=== PATIENT | male | born 1975 | race Two or more races ===

== ENCOUNTER → 2018-12-09 | Outpatient (CLI) | payer OTHER | END | disposition home or self-care (01) | LOC: SONOGRAMA 12:39 → RAD 12:39 | DX: Z13.0 Encounter for screening for diseases of the blood and blood-forming organs and certain disorders involving the immune mechanism (principal); R51 Headache; R49.8 Other voice and resonance disorders; R09.81 Nasal congestion ==

== ENCOUNTER 2019-01-15 11:04 | Outpatient (CLI) | payer OTHER | END 2019-01-15 11:08 | disposition home or self-care (01) | LOC: SONOGRAMA 11:04 | DX: K42.0 Umbilical hernia with obstruction, without gangrene (principal) ==

== ENCOUNTER 2019-03-10 11:17 | Outpatient (CLI) | payer OTHER | END 2019-03-10 17:00 | disposition home or self-care (01) | LOC: TOM 11:17 | DX: K43.9 Ventral hernia without obstruction or gangrene (principal) ==

== ENCOUNTER 2019-04-06 05:25 | Day surgery (SDC) | payer OTHER | END 2019-04-06 14:30 | disposition home or self-care (01) | LOC: CIR.AMB 05:25 | DX: K43.6 Other and unspecified ventral hernia with obstruction, without gangrene (principal) ==

== ENCOUNTER 2022-06-19 10:51 | Outpatient (CLI) | payer OTHER | END 2022-06-19 11:03 | disposition home or self-care (01) | LOC: MRI 10:51 | PROVIDERS: ATTEND Specialist | DX: M25.562 Pain in left knee (principal) | CPT/HCPCS: 73718 ==

== ENCOUNTER 2023-03-11 10:29 | Outpatient (CLI) | payer OTHER | END 2023-03-11 10:39 | disposition home or self-care (01) | LOC: MRI 10:29 | PROVIDERS: ATTEND General Practice | DX: M25.551 Pain in right hip (principal); M79.651 Pain in right thigh | CPT/HCPCS: 73718 ==

== ENCOUNTER 2024-12-28 11:06 | Inpatient (IN) | payer OTHER ==
[~2024-12-28] VITALS: Ht 170.2 cm; Wt 88.5 kg
--- NOTE | 2024-12-28 11:36 | NUR ---
PACIENTE ALERTA Y ORIENTADO X3 EL MISMO REFIERE PAT DOLOR ABDOMINAL Y VOMITOS 4 . S/V ESTABLES DENTRO DE REINOSO CONDICION . PACIENTE EN ESPERA DE EVALUACION MEDICA.
[2024-12-28] MEDS ORDERED: MORPHINE SULFATE 4 MG/ML VIAL IV ONE (12:00)
[2024-12-28] MEDS ORDERED: 0.9 % SODIUM CHLORIDE 1,000 ML IV SCH ×2 (12:00→19:00)
[2024-12-28 12:32] LABS: BASO % 0.1 % (0.1-1.2); EOS # 0.08 (0.04-0.54); EOS % 0.5 % (0.7-7.0); LYMPH # 0.47 (1.18-3.74); LYMPH % 2.8 % (19.3-53.1); MEAN PLATELET VOLUME 10.50 fl (9.4-12.4); MONO # 1.20 (0.24-0.82); MONO % 7.1 % (4.7-12.5); NEUT # 14.96 (1.56-6.13); NEUT % 88.8 % (34.0-71.1); RED CELL DISTRIBUTION WIDTH 11.8 % (11.6-14.4)
--- NOTE | 2024-12-28 12:42 | NUR ---
EDMAR EL EDUCA ACERCA DE [place] ORDENADO Y REFIERE ENTENDER. SE CANALIZA Y COLECTAN MUESTRAS DE LABORATORIO MEDIANTE MEDIDAS ASEPTICAS. SE ADMINISTRAN MEDICAMENTOS CATIE ORDEN MEDICA.
[2024-12-28 12:48] LABS: BUN CREA RATIO 10.0 (7.0-25.0); CREATININE SERUM 0.83 mg/dL (0.70-1.30); GFR 97.67; GLUCOSE FASTING 121.0 mg/dL (65-100); OSMOLALITY SERUM 273.0 MOSM/KG (275-295)
[2024-12-28 12:59] LABS: COVID-19 AG NEGATIVE (NEGATIVE)
[2024-12-28 13:09] LABS: URINE APPEARANCE Clear; URINE BILIRRUBIN Negative (NEGATIVE); URINE BLOOD Small; URINE COLOR Dark Yellow; URINE GLUCOSE Negative (NEGATIVE); URINE KETONE Trace (NEGATIVE); URINE LEUKOCYTE Trace; URINE NITRATE Negative; URINE UROBILINOGEN 1.0 E.U./dl
[2024-12-28 13:13] LABS: URINE BACTERIA 9.5 uL (0.0-1933); URINE EPITHELIAL CELLS 11.6 uL (0.0-38.8); URINE RBC 34.1 uL (0.0-20.8); URINE WBC 8.4 uL (0.0-23.2)
[2024-12-28 13:19] LABS: URINE CAST 0.73 uL (0.0-1.40); URINE PROTEIN 100 (NEGATIVE)
[2024-12-28 13:24] LABS: URINE CRYSTALS FEW /HPF; URINE MUCUS HEAVY
[2024-12-28] MEDS ORDERED: PIPERACILLIN/TAZOBACTAM SODIUM 3.375 GM VIAL IV ONE (16:00)
[2024-12-28 16:51] LABS: INR 1.11
[2024-12-28] MEDS ORDERED: KETOROLAC TROMETHAMINE 30 MG VIAL IV STA (17:43)
[2024-12-28] MEDS ORDERED: ACETAMINOPHEN 500 MG GEL..CAP PO STA (17:44)
[2024-12-28] MEDS ORDERED: FAMOTIDINE/PF 20 MG in 0.9 % SODIUM CHLORIDE 8 ML IV PUSH SCH (18:50)
[2024-12-28] MEDS ORDERED: PIPERACILLIN/TAZOBACTAM SODIUM 3.375 GM in DEXTROSE 5 % IN WATER 100 ML IV SCH (18:50)
[2024-12-28] MEDS ORDERED: ONDANSETRON HCL 4 MG in 0.9 % SODIUM CHLORIDE 50 ML IV PRN (19:00)
[2024-12-28] MEDS ORDERED: MORPHINE SULFATE 2 MG/ML SYRINGE IV PRN (19:00)
[2024-12-28] MEDS ORDERED: ACETAMINOPHEN 500 MG GEL..CAP PO PRN (19:00)
[2024-12-29] MEDS ORDERED: MORPHINE SULFATE 4 MG/ML VIAL IV ONE
[2024-12-29] MEDS ORDERED: MORPHINE SULFATE 4 MG/ML CARTRIDGE IV PRN (09:45)
[2024-12-29 10:23] VITALS: BP 117/75; O2SAT 98
[2024-12-29 13:31] LABS: BASO % 0.1 % (0.1-1.2); EOS # 0.01 (0.04-0.54); EOS % 0.1 % (0.7-7.0); LYMPH # 0.39 (1.18-3.74); LYMPH % 4.2 % (19.3-53.1); MEAN PLATELET VOLUME 11.50 fl (9.4-12.4); MONO # 0.60 (0.24-0.82); MONO % 6.5 % (4.7-12.5); NEUT # 8.16 (1.56-6.13); NEUT % 88.7 % (34.0-71.1); RED CELL DISTRIBUTION WIDTH 12.3 % (11.6-14.4)
[2024-12-29 14:08] LABS: BUN CREA RATIO 12.0 (7.0-25.0); CREATININE SERUM 1.04 mg/dL (0.70-1.30); GFR 75.29; GLUCOSE FASTING 86.0 mg/dL (65-100); OSMOLALITY SERUM 275.0 MOSM/KG (275-295)
[2024-12-29 19:09] VITALS: BP 130/78; O2SAT 98
[2024-12-29] MEDS ORDERED: METOCLOPRAMIDE HCL 5 MG/ML VIAL IV SCH (21:00)
[2024-12-30 01:00] VITALS: BP 115/74
[2024-12-30 09:42] VITALS: BP 145/84; O2SAT 97
[2024-12-30 18:36] VITALS: BP 160/85; O2SAT 97
[2024-12-30 20:45] LABS: ALT/SGPT 25.0 U/L (12-78); AST/SGOT 35.0 U/L (15-37); BILIRUBIN TOTAL 1.55 mg/dL (0.3-1.2); BUN CREA RATIO 12.0 (7.0-25.0); CREATININE SERUM 0.76 mg/dL (0.70-1.30); GFR 108.13; GLOBULINA 3.6 G/DL (2.4-3.5); GLUCOSE FASTING 97.0 mg/dL (65-100); OSMOLALITY SERUM 276.0 MOSM/KG (275-295)
[2024-12-31 01:41] VITALS: BP 160/90
[2024-12-31 05:41] LABS: BASO % 0.3 % (0.1-1.2); EOS # 0.12 (0.04-0.54); EOS % 1.0 % (0.7-7.0); LYMPH # 0.42 (1.18-3.74); LYMPH % 3.7 % (19.3-53.1); MEAN PLATELET VOLUME 11.10 fl (9.4-12.4); MONO # 0.74 (0.24-0.82); MONO % 6.4 % (4.7-12.5); NEUT # 10.07 (1.56-6.13); NEUT % 87.8 % (34.0-71.1); RED CELL DISTRIBUTION WIDTH 12.2 % (11.6-14.4)
[2024-12-31 08:00] VITALS: BP 172/90; O2SAT 95
[2024-12-31] MEDS ORDERED: KETOROLAC TROMETHAMINE 30 MG VIAL IV PRN (13:30)
[2024-12-31 16:56] VITALS: BP 168/96; O2SAT 95
[2025-01-01 03:35] VITALS: BP 157/88; O2SAT 95
[2025-01-01 10:25] VITALS: BP 175/95
[2025-01-01] MEDS ORDERED: ENALAPRILAT DIHYDRATE 1.25 MG/ML VIAL IV PRN (10:30)
[2025-01-01 19:13] VITALS: BP 181/92
[2025-01-02 02:59] VITALS: BP 148/75; O2SAT 93
[2025-01-02 09:05] VITALS: BP 159/78
[2025-01-02 17:58] VITALS: BP 169/83
[2025-01-03 00:42] VITALS: BP 166/77; O2SAT 95
[2025-01-03 06:36] LABS: BASO % 0.3 % (0.1-1.2); EOS # 0.35 (0.04-0.54); EOS % 2.4 % (0.7-7.0); LYMPH # 1.11 (1.18-3.74); LYMPH % 7.6 % (19.3-53.1); MEAN PLATELET VOLUME 10.70 fl (9.4-12.4); MONO # 1.53 (0.24-0.82); MONO % 10.5 % (4.7-12.5); NEUT # 11.33 (1.56-6.13); NEUT % 78.0 % (34.0-71.1); RED CELL DISTRIBUTION WIDTH 11.9 % (11.6-14.4)
[2025-01-03 06:52] LABS: BUN CREA RATIO 19.0 (7.0-25.0); CREATININE SERUM 0.53 mg/dL (0.70-1.30); GFR 163.9; GLUCOSE FASTING 70.0 mg/dL (65-100); OSMOLALITY SERUM 273.0 MOSM/KG (275-295)
[2025-01-03 07:37] LABS: BAND MAN 1.0 %; LYMPHOCYTE MAN 5.0 %; MONOCYTE MAN 12.0 %; NEUTROPHILS MAN 80.0 %
[2025-01-03 08:47] VITALS: BP 150/80; O2SAT 98
[2025-01-03 18:14] VITALS: BP 162/80
[2025-01-03] MEDS ORDERED: LACTOBACILLUS ACIDOPHILUS 1 CAP CAP PO SCH (19:52)
[2025-01-04 02:21] VITALS: BP 149/76; O2SAT 95
[2025-01-04 05:45] LABS: BASO % 0.3 % (0.1-1.2); EOS # 0.27 (0.04-0.54); EOS % 2.4 % (0.7-7.0); LYMPH # 0.72 (1.18-3.74); LYMPH % 6.4 % (19.3-53.1); MEAN PLATELET VOLUME 10.30 fl (9.4-12.4); MONO # 1.11 (0.24-0.82); MONO % 9.8 % (4.7-12.5); NEUT # 8.98 (1.56-6.13); NEUT % 79.6 % (34.0-71.1); RED CELL DISTRIBUTION WIDTH 11.8 % (11.6-14.4)
[2025-01-04 07:58] VITALS: BP 175/73
[2025-01-04 19:23] VITALS: BP 165/80; O2SAT 97
[2025-01-05 01:40] VITALS: BP 132/72; O2SAT 99
[2025-01-05 06:20] LABS: BASO % 0.4 % (0.1-1.2); EOS # 0.28 (0.04-0.54); EOS % 2.9 % (0.7-7.0); LYMPH # 0.79 (1.18-3.74); LYMPH % 8.3 % (19.3-53.1); MEAN PLATELET VOLUME 10.50 fl (9.4-12.4); MONO # 0.74 (0.24-0.82); MONO % 7.7 % (4.7-12.5); NEUT # 7.61 (1.56-6.13); NEUT % 79.8 % (34.0-71.1); RED CELL DISTRIBUTION WIDTH 11.9 % (11.6-14.4)
[2025-01-05 06:57] LABS: ALT/SGPT 26.0 U/L (12-78); AST/SGOT 16.0 U/L (15-37); BILIRUBIN TOTAL 0.61 mg/dL (0.3-1.2); BUN CREA RATIO 8.0 (7.0-25.0); CREATININE SERUM 0.59 mg/dL (0.70-1.30); GFR 144.82; GLOBULINA 3.3 G/DL (2.4-3.5); GLUCOSE FASTING 96.0 mg/dL (65-100); OSMOLALITY SERUM 278.0 MOSM/KG (275-295)
== END 2025-01-05 16:18 | disposition home or self-care (01) | DRG 398 ==
LOC: ER 11:06 → SEC-K 19:33 → MEDJ 19:33 → O/R 23:49 → MEDJ 12-29 07:44 → MEDI 01-04 16:23 → MEDJ 01-04 16:31
PROVIDERS: Emergency Medicine; Internal Medicine; Internal Medicine Infectious Disease; Student in an Organized Health Care Education/Training Program; Surgery; ADMIT Internal Medicine; ATTEND Internal Medicine
PROC: 0W9F3ZZ Drainage of Abdominal Wall, Percutaneous Approach (ICD-10-PCS; 2024-12-28)
PROC: BW21YZZ Computerized Tomography (CT Scan) of Abdomen and Pelvis using Other Contrast (ICD-10-PCS; 2024-12-28)
PROC: 0DTJ4ZZ Resection of Appendix, Percutaneous Endoscopic Approach (ICD-10-PCS; principal; 2024-12-28 22:30)
PROC: BW21ZZZ Computerized Tomography (CT Scan) of Abdomen and Pelvis (ICD-10-PCS; 2025-01-04)
DX: K35.32 Acute appendicitis with perforation, localized peritonitis, and gangrene, without abscess (principal); R65.10 Systemic inflammatory response syndrome (SIRS) of non-infectious origin without acute organ dysfunction

== ENCOUNTER 2025-04-13 08:37 | Outpatient (CLI) | payer OTHER | END 2025-04-13 08:55 | disposition home or self-care (01) | LOC: TOM 08:37 | PROVIDERS: ATTEND Specialist | DX: R63.4 Abnormal weight loss (principal); D64.9 Anemia, unspecified ==

== ENCOUNTER 2025-04-20 11:45 | Outpatient (CLI) | payer OTHER ==
[2025-04-20 12:33] LABS: BASO % 0.5 % (0.1-1.2); EOS # 0.31 (0.04-0.54); EOS % 5.4 % (0.7-7.0); LYMPH # 0.96 (1.18-3.74); LYMPH % 16.7 % (19.3-53.1); MEAN PLATELET VOLUME 10.20 fl (9.4-12.4); MONO # 0.49 (0.24-0.82); MONO % 8.5 % (4.7-12.5); NEUT # 3.96 (1.56-6.13); NEUT % 68.7 % (34.0-71.1); RED CELL DISTRIBUTION WIDTH 12.8 % (11.6-14.4)
[2025-04-20 13:09] LABS: ALT/SGPT 20.0 U/L (12-78); AST/SGOT 12.0 U/L (15-37); BILIRUBIN TOTAL 0.88 mg/dL (0.3-1.2); BUN CREA RATIO 15.0 (7.0-25.0); CREATININE SERUM 0.68 mg/dL (0.70-1.30); GFR 122.45; GLOBULINA 3.3 G/DL (2.4-3.5); GLUCOSE FASTING 94.0 mg/dL (65-100); OSMOLALITY SERUM 284.0 MOSM/KG (275-295)
== END 2025-04-20 11:55 | disposition home or self-care (01) ==
LOC: LAB 11:45
PROVIDERS: ATTEND Specialist
DX: R93.2 Abnormal findings on diagnostic imaging of liver and biliary tract (principal); D73.9 Disease of spleen, unspecified

== ENCOUNTER 2025-04-21 08:09 | Outpatient (CLI) | payer OTHER | END 2025-04-21 08:19 | disposition home or self-care (01) | LOC: MRI 08:09 | PROVIDERS: ATTEND Specialist | DX: R93.2 Abnormal findings on diagnostic imaging of liver and biliary tract (principal); D73.9 Disease of spleen, unspecified | CPT/HCPCS: 74183 ==

== ENCOUNTER 2025-04-28 07:22 | Outpatient (CLI) | payer OTHER | END 2025-04-28 07:23 | disposition home or self-care (01) | LOC: NUCLEAR 07:22 | PROVIDERS: ATTEND Internal Medicine Gastroenterology | DX: K81.1 Chronic cholecystitis (principal) ==